=== PATIENT | male | born 1945 | race Caucasian/White ===

== ENCOUNTER → 2016-07-08 | Outpatient (CLI) | payer OTHER, BC ==
[2015-07-10 13:07] VITALS: BP 148/67; PULSE 59
[~2016-07-08] MED LIST: COEN150C PO; IBUP-1459 PO; OXYC1TAB3 PO; PEMB1INJ IV; PILO5TAB10 PO; SIMV20TA2 PO; [UNRECOGNIZED DRUG - CODE] INJ; [UNRECOGNIZED DRUG - CODE] INJ
[2016-07-08 13:09] VITALS: BP 149/74; PULSE 72; TEMP 36.8; O2SAT 99
--- NOTE | 2016-07-08 16:34 | Radiation Oncology Follow-Up ---
Radiation Oncology Follow-Up Date of Visit Jul 08, 2016. Reason For Visit Annual follow-up Radiation Completion Date 11/29/14 Diagnosis (1) Malignant neoplasm of base of tongue Status: Resolved Onset Date: 09/19/2014 Location: left tongue base with extension across midline and into bilateral neck Histology Subtype: squamous cell carcinoma Stage: IV Permanent Comment: One set of your discomfort Evaluation and finding of a right neck mass Status post FNA of a right neck node 08/22/2014 suspicious for malignancy PET/CT 08/29/2014 consistent with neoplasm left base of the tongue with extension across the midline. And bilateral lymph node metastasis Status post direct laryngoscopy and biopsy 09/12/2014 Status post combined radiation and chemotherapy radiation completed 11/29/2014 received 7000 cGy Last Edited By: Ghazal Ivory on Dec 07, 2014 14:26 History of Present Illness This otherwise fit 71-year-old gentleman was referred from ENT surgery in [place] for consideration of definitive therapy for his head and neck carcinoma. The patient had noted ear pain on the contralateral left side a few months ago when he obtained new in-ear hearing aids. The problem is worse on the left and was intermittent. He then noted about 6 weeks ago the onset of some difficulty in swallowing completely. The patient sought medical attention and was seen by ENT. Dr. Ricks noted suspicious adenopathy in the right neck at the digastric region. The patient had not noticed this. The patient was taken to the operating room for direct laryngoscopy and possible biopsy back on 09/12/2014 of this year. Biopsies from his epiglottis, glottic tip and tongue base were all NEGATIVE for carcinoma. Needle aspirate performed on 08/22/2014 of the suspicious pelon area was a suspicious for malignancy. The patient underwent a workup that included PET/CT scan on 08/29/2014. That demonstrated a mass at the tongue base that is approximately 2.5 cm in diameter (T2). There was a confluence of multiple lymph nodes seen in the right neck. The nodes were primarily in the classic digastric pelon area. These nodes were 8-9 mm in size confluence. The patient is not taking anything specifically for pain. He has noticed his appetite has remained reasonably good. He has no systemic manifestations of metastatic disease. The patient has been keeping up with his dental care. He has not seen a medical oncologist to consider combined chemoradiation in this setting. In view of the negative true biopsies and only suspicious needle aspirates we did have pathology here reneedle the lymph nodes. The "Quick" pathology read is positive for squamous cell malignancy. The HPV testing will be done on the specimen if possible. 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 They are understanding his disease. It is interesting when talking with the patient, he stopped smoking back in 1991 and has never had alcohol abuse as part of his history and does not drink alcohol at all now. He was seen by Dr. Coats. Decision was to treat him with combined radiation and chemotherapy. He completed combined radiation and chemotherapy. He developed difficulty with nutrition and had a feeding tube placed. He was able to complete the treatment. He was hospitalized for nausea and vomiting as well as dysphagia. He completed radiation therapy 11/29/2014 received 7000 cGy. Interim History He has been doing well over this past year. He does have xerostomia. This is especially noticeable at night. He has tried multiple products to help with the xerostomia including Biotene, stoppers for dry mouth, and Salagen. His taste is still greatly affected. He has no difficulty with smell. He is seen on a regular basis by ENT and has scoping's every 3 months. He recently had pain at the base of the tongue. This would occur especially with eating. He did see Dr. Hernandez and was evaluated. He took ibuprofen. The pain resolved without difficulty. He continues regular follow-up with medical oncology. He had a PET scan 02/17/2016. This was a negative study. He is scheduled for recheck CT scan in August. Allergies Coded Allergies: Amoxicillin (Unverified Allergy, Severe, RASH, 02/28/15) Home Medications Scheduled Coenzyme Q10 (Ubidecarenone) (Co Q-10), 100 MG PO DAILY Simvastatin (Zocor), 20 MG PO QPM Review of Systems Gastrointestinal: Symptoms: WNL GI Comments: No dysphagia; Oral: Symptoms: Scant Saliva/Dry Mouth Other Oral Symptoms: Dry mouth more noticeable at night; Respiratory: Symptoms: WNL Urinary: Symptoms: WNL Skin: Symptoms: No Problems Physical Exam Vital Signs Date Time Temp Pulse Resp B/P Pulse Ox O2 Delivery O2 Flow Rate FiO2 07/08/16 13:09 36.8 72 16 149/74 99 Pain: Pain Location: None Patient Pain Scale: 0 - 10 Initial Pain Intensity: 0.0 Fatigue: None General Appearance: no apparent distress Eyes: normal inspection, EOMI ENT: normal ENT inspection, TMs normal, + pertinent finding (mouth there are no visible lesions of the tongue, posterior pharynx, or buccal mucosa.) Neck: supple, no adenopathy, thyroid normal Respiratory/Chest: lungs clear, no respiratory distress, no accessory muscle use Cardiovascular: regular rate, rhythm, no gallop, no murmur Abdomen: non tender, soft Extremities: no pedal edema Neurologic/Psychiatric: no motor/sensory deficits, alert, normal mood/affect Skin: warm/dry Assessment & Plan Plan: Continue regular follow-up with medical oncology his primary care physician and ENT. He is going to have a recheck CT scan in August. We've asked him to have carotid Dopplers for follow-up. We'll try to arrange these on the same day to save [facility] [place]. I have given him an order for a TSH that he can have drawn the next time he has routine laboratory studies. He' ll be notified as to the results of these tests. We asked him to return to our office in 1 year. He may call if he has any questions or concerns in the interim. Total Time In Follow-Up I spent 20 minutes feeding to the patient and performing examination. I spent 15 minutes reviewing information in completing this note. Copy To Filiberto Ricks; Vignesh Perez M.D.; Robel Coats M.D.
== END | disposition home or self-care (01) ==
LOC: C.ONC 12:51
PROVIDERS: ATTEND Physician Assistant Medical
DX: Z08 Encounter for follow-up examination after completed treatment for malignant neoplasm (principal); Z92.3 Personal history of irradiation; Z85.810 Personal history of malignant neoplasm of tongue

== ENCOUNTER → 2016-08-24 | Outpatient (CLI) | payer OTHER, BC ==
[~2016-08-24] MED LIST changes: +OPTIRAY 320 IV PRN; -PILO5TAB10 PO
--- NOTE | 2016-08-24 10:20 | DIAGNOSTIC IMAGING REPORT ---
BILATERAL CAROTID DOPPLER STUDY HISTORY: HX NEOPLASM BASE OF TONGUE COMPARISON: None. TECHNIQUE: Real-time, grayscale, and color Doppler sonography of the carotid arteries was performed. Imaging reviewed in the transverse and longitudinal planes. All measurements were calculated based on NASCET criteria. FINDINGS: Antegrade flow is seen in the bilateral vertebral arteries. The brachial pressures are hemodynamically similar. Mild calcified plaque within the bilateral carotid bifurcations The peak systolic velocity within the right ICA is 83 cm/s. The right systolic ratio is 1. The peak systolic velocity within the left ICA is 84 cm/s. The left systolic ratio is 1.2. IMPRESSION: No hemodynamically significant stenosis seen within the carotid arteries. Electronically signed by: Brad Howard M.D. 08/24/2016 10:19 AM Dictated Date/Time: 08/24/2016 10:18 AM
--- NOTE | 2016-08-24 11:37 | DIAGNOSTIC IMAGING REPORT ---
CHEST CT WITH CONTRAST CT DOSE: HISTORY: Carcinoma X TECHNIQUE: Multiaxial CT images of the chest were performed following the intravenous administration of contrast. COMPARISON: PET/CT scan 02/17/2016 FINDINGS: The lungs are clear. The mediastinal vascular structures are within normal limits. No mediastinal or hilar lymphadenopathy. No pleural effusion or pneumothorax. Limited views of the upper abdomen demonstrate a normal liver and spleen. Calcified granuloma right upper lung considered benign. IMPRESSION: No significant abnormality identified within the chest. Electronically signed by: Be Dsouza M.D. 08/24/2016 11:35 AM Dictated Date/Time: 08/24/2016 11:33 AM
--- NOTE | 2016-08-24 11:44 | DIAGNOSTIC IMAGING REPORT ---
CT SOFT TISSUE NECK WITH CT DOSE: 1909.45 mGy.cm CLINICAL HISTORY: Base of tongue carcinoma TECHNIQUE: Helical images were acquired during intravenous administration of 94 cc of Optiray 320. COMPARISON STUDY: Outside 611 radiology study dated 08/16/2014, PET/CT scan dated 02/17/2016 FINDINGS: The visualized portions of the lung apices are unremarkable. No thyroid masses are visualized. No salivary gland masses are visualized. The right internal jugular vein is not clearly visualized. There is loss of the soft tissue planes surrounding the right internal carotid artery. There is increasing soft tissue posterior to the right sternocleidomastoid at the base the right neck abutting the lateral margin of the right carotid. This appears to have enlarged when compared the prior PET/CT scan. Metastatic disease must be considered. Fine-needle aspiration biopsy might be considered in follow-up.. There are no fluid collections suspicious for abscess. There is no evidence of airway compromise. No mucosal space masses are visualized. IMPRESSION: Enlarging 4 cm soft tissue mass at the base of the right neck posterior to the sternocleidomastoid, and abutting the right internal carotid artery. There is loss of normal fat planes surrounding the right internal carotid artery. The right internal jugular vein is not visualized. Metastatic disease must be considered. Fine-needle aspiration biopsy might be considered in follow-up. Electronically signed by: Alfie Nichole M.D. 08/24/2016 11:42 AM Dictated Date/Time: 08/24/2016 11:33 AM
--- NOTE | 2016-08-24 12:24 | DIAGNOSTIC IMAGING REPORT ---
ABDOMEN AND PELVIS CT WITH IV AND ORAL CONTRAST CT DOSE: HISTORY: Tongue cancer. TECHNIQUE: Multiaxial CT images of the abdomen and pelvis were performed following the use of intravenous and oral contrast. COMPARISON STUDY: PET CT 02/17/2016. FINDINGS: The lung bases are clear. Old, healed right-sided rib fractures. No suspicious lytic or blastic osseous lesions. The spleen, adrenal glands, pancreas, kidneys, and gallbladder are unremarkable. There are few subcentimeter hypodense lesions seen scattered throughout the liver. The dominant lesion within the right hepatic dome measures 5 mm. These are too small to characterize but favor cysts. These are stable compared to the prior studies. No retroperitoneal lymphadenopathy. Subcentimeter mesenteric lymph nodes remain stable. The bladder is unremarkable. Normal appendix. No evidence for bowel obstruction. Moderate stool within the colon. Multiple colonic diverticula. Focal thickening seen within a large diverticulum of the mid sigmoid colon. This is best seen on image 346. There is also minimal adjacent fat stranding/soft tissue thickening. This is similar to the prior studies. There is also a few prominent pericolonic lymph nodes at this location measuring up to 8 mm. IMPRESSION: 1. No evidence for metastatic disease within the abdomen or pelvis. 2. Focal thickening involving a large diverticulum within the mid sigmoid colon which is similar to the prior studies. This could represent a chronic diverticulitis. There is also a minimal adjacent soft tissue thickening/fat stranding and a few prominent pericolonic lymph nodes. In addition, an underlying mass could also have a similar appearance. Colonoscopy is recommended for further evaluation. Electronically signed by: Brad Howard M.D. 08/24/2016 12:23 PM Dictated Date/Time: 08/24/2016 12:15 PM
== END | disposition home or self-care (01) ==
LOC: C.CTS 09:10
PROVIDERS: ATTEND Internal Medicine Hematology
DX: C01 Malignant neoplasm of base of tongue (principal); R22.1 Localized swelling, mass and lump, neck

== ENCOUNTER → 2016-09-23 | Outpatient (CLI) | payer OTHER, BC ==
[~2016-09-23] MED LIST changes: -OPTIRAY 320 IV PRN
[2016-09-23 13:25] VITALS: BP 137/69; PULSE 59; TEMP 36.9; O2SAT 97
--- NOTE | 2016-09-23 15:56 | Radiation Oncology Follow-Up ---
Radiation Oncology Follow-Up Date of Visit Sep 23, 2016. (Ghazal Ivory PA-C) Reason For Visit To discuss recurrence of head and neck cancer (Ghazal Ivory PA-C) Radiation Completion Date 11/29/16 (Ghazal Ivory PA-C) Diagnosis (1) Malignant neoplasm of base of tongue Status: Acute Onset Date: 09/19/2014 Location: recurrence right anterior neck Histology Subtype: squamous cell carcinoma Stage: Not Applicable Permanent Comment: One set of your discomfort Evaluation and finding of a right neck mass Status post FNA of a right neck node 08/22/2014 suspicious for malignancy PET/CT 08/29/2014 consistent with neoplasm left base of the tongue with extension across the midline. And bilateral lymph node metastasis Status post direct laryngoscopy and biopsy 09/12/2014 Stage T3 N2c M0 Status post combined radiation and chemotherapy radiation completed 11/29/[address] 08/24/2016 revealing a 4 cm mass of the right neck FNA positive for malignant cells 09/01/2016, squamous cell carcinoma Last Edited By: Ghazal Ivory on Sep 23, 2016 15:55 (Ghazal Ivory PA-C) History of Present Illness This otherwise fit 71-year-old gentleman was referred from ENT surgery in [place] for consideration of definitive therapy for his head and neck carcinoma. The patient had noted ear pain on the contralateral left side a few months ago when he obtained new in-ear hearing aids. The problem is worse on the left and was intermittent. He then noted about 6 weeks ago the onset of some difficulty in swallowing completely. The patient sought medical attention and was seen by ENT. Dr. Ricks noted suspicious adenopathy in the right neck at the digastric region. The patient had not noticed this. The patient was taken to the operating room for direct laryngoscopy and possible biopsy back on 09/12/2014 of this year. Biopsies from his epiglottis, glottic tip and tongue base were all NEGATIVE for carcinoma. Needle aspirate performed on 08/22/2014 of the suspicious pelon area was a suspicious for malignancy. The patient underwent a workup that included PET/CT scan on 08/29/2014. That demonstrated a mass at the tongue base that is approximately 2.5 cm in diameter (T2). There was a confluence of multiple lymph nodes seen in the right neck. The nodes were primarily in the classic digastric pelon area. These nodes were 8-9 mm in size confluence. The patient is not taking anything specifically for pain. He has noticed his appetite has remained reasonably good. He has no systemic manifestations of metastatic disease. The patient has been keeping up with his dental care. He has not seen a medical oncologist to consider combined chemoradiation in this setting. In view of the negative true biopsies and only suspicious needle aspirates we did have pathology here reneedle the lymph nodes. The "Quick" pathology read is positive for squamous cell malignancy. The HPV testing will be done on the specimen if possible. 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 They are understanding his disease. It is interesting when talking with the patient, he stopped smoking back in 1991 and has never had alcohol abuse as part of his history and does not drink alcohol at all now. He was seen by Dr. Coats. Decision was to treat him with combined radiation and chemotherapy. He completed combined radiation and chemotherapy. He developed difficulty with nutrition and had a feeding tube placed. He was able to complete the treatment. He was hospitalized for nausea and vomiting as well as dysphagia. He completed radiation therapy 11/29/2014 received 7000 cGy. (Ghazal Ivory PA-C) Interim History Patient isn't followed closely by Dr. Coats in medical oncology. He had noticed no changes to his neck. He had palpated no masses. He denied pain. He 's had no difficulty with swallowing. His appetite is good and weight is stable. He is also followed by Dr. Ricks. An MRI was ordered and performed 611 on 08/24/2016. This revealed a right neck mass with partial encasement of the right common carotid artery. He also had a CT of the neck on 08/24/2016. This revealed enlarging 4 cm soft tissue mass at the base of the right neck posterior to the sternocleidomastoid, and abutting the right internal carotid artery. There is loss of normal fat plane surrounding the right internal carotid artery. The right internal jugular vein is not visualized. Instead disease must be considered. Fine-needle aspiration biopsy may be considered in follow-up. A fine-needle aspiration was performed 2016. This was positive for malignant cells. Consistent with squamous cell carcinoma. He stated he had a scoping on 09/22/2016 and this was negative for visible disease on the NPL examination. Due to the recurrence patient was referred back to our office to discuss radiation therapy. (Ghazal Ivory PA-C) Allergies Coded Allergies: Amoxicillin (Unverified Allergy, Severe, RASH, 02/28/15) Home Medications Scheduled Coenzyme Q10 (Ubidecarenone) (Co Q-10), 100 MG PO DAILY Pembrolizumab (Keytruda), 1 APPLN IV [id number] Simvastatin (Zocor), 20 MG PO QPM Review of Systems Gastrointestinal: Symptoms: WNL Oral: Symptoms: No Problems Other Oral Symptoms: Side of right neck has tenderness at times Respiratory: Symptoms: WNL Urinary: Symptoms: WNL Skin: Symptoms: No Problems (Ghazal Ivory PA-C) Physical Exam Vital Signs Date Time Temp Pulse Resp B/P (MAP) Pulse Ox O2 Delivery O2 Flow Rate FiO2 09/23/16 13:25 36.9 59 16 137/69 97 Fatigue: None General Appearance: no apparent distress Eyes: normal inspection, PERRL, EOMI ENT: hearing grossly normal, pharynx normal Neck: supple, thyroid normal, + pertinent finding (there is palpable fullness of the right neck anteriorly. This is anterior to the sternocleidomastoid. The area is nontender.) Respiratory/Chest: lungs clear, no respiratory distress, no accessory muscle use Cardiovascular: regular rate, rhythm, no gallop, no murmur Abdomen: non tender, soft Extremities: no pedal edema Neurologic/Psychiatric: no motor/sensory deficits, alert, normal mood/affect Skin: warm/dry (Ghazal Ivory PA-C) Additional Studies Patient: AGNES JIN Address1: [address] Rec: [id number] Address2: Acct ID: [id number] [facility] Zip: [place] [address] Date: 1945 Sex: M Room/Bed: Ref Phy: Stevie Lozano M.D. SC: ELHAM Att Phy: Robel Coats M.D. Report #: [id number] Cindy Phy: Vignesh Perez M.D. Test: NCKW Admit Phy: Pattern Maker: ORESTES Interpreting Phy: Alfie Nichole M.D. Diagnosis: WITH AND WITHOUT/TONGUE CA- NEOPLASM BASE OF TONGUE Ordering Phy: Robel Coats M.D. Service Date: 08/24/16 Admit Date: 08/24/16 MNE: [id number] CONF: DICTATED BY: Alfie Nichole M.D.]] CC: Vignesh Perez M.D., Eric M. M.D. Patel, Nilesh A., M.D. Endcc: [~ rep ct add3]] CT SOFT TISSUE NECK WITH CT DOSE: 1909.45 mGy.cm CLINICAL HISTORY: Base of tongue carcinoma TECHNIQUE: Helical images were acquired during intravenous administration of 94 cc of Optiray 320. COMPARISON STUDY: Outside 611 radiology study dated 08/16/2014, PET/CT scan dated 02/17/2016 FINDINGS: The visualized portions of the lung apices are unremarkable. No thyroid masses are visualized. No salivary gland masses are visualized. The right internal jugular vein is not clearly visualized. There is loss of the soft tissue planes surrounding the right internal carotid artery. There is increasing soft tissue posterior to the right sternocleidomastoid at the base the right neck abutting the lateral margin of the right carotid. This appears to have enlarged when compared the prior PET/CT scan. Metastatic disease must be considered. Fine-needle aspiration biopsy might be considered in follow-up.. There are no fluid collections suspicious for abscess. There is no evidence of airway compromise. No mucosal space masses are visualized. IMPRESSION: Enlarging 4 cm soft tissue mass at the base of the right neck posterior to the sternocleidomastoid, and abutting the right internal carotid artery. There is loss of normal fat planes surrounding the right internal carotid artery. The right internal jugular vein is not visualized. Metastatic disease must be considered. Fine-needle aspiration biopsy might be considered in follow-up. Electronically signed by: Alfie Nichole M.D. 08/24/2016 11:42 AM Dictated Date/Time: 08/24/2016 11:33 AM Patient: AGNES JIN Address1: [address] Rec: [id number] Address2: Acct ID: [id number] [facility] Zip: [place] [address] Date: 1945 Sex: M Room/Bed: Ref Phy: Stevie Lozano M.D. SC: ELHAM Att Phy: Robel Coats M.D. Report #: [id number] Cindy Phy: Vignesh Perez M.D. Test: CX Admit Phy: Pattern Maker: ORESTES Interpreting Phy: Be Dsouza M.D. Diagnosis: WITH AND WITHOUT/TONGUE CA- NEOPLASM BASE OF TONGUE Ordering Phy: Robel Coats M.D. Service Date: 08/24/16 Admit Date: 08/24/16 MNE: [id number] CONF: DICTATED BY: Be Dsouza M.D.]] CC: Vignesh Perez M.D., Eric M. M.D. Patel, Nilesh A., M.D. Endcc: [~ rep ct add3]] CHEST CT WITH CONTRAST CT DOSE: HISTORY: Carcinoma X TECHNIQUE: Multiaxial CT images of the chest were performed following the intravenous administration of contrast. COMPARISON: PET/CT scan 02/17/2016 FINDINGS: The lungs are clear. The mediastinal vascular structures are within normal limits. No mediastinal or hilar lymphadenopathy. No pleural effusion or pneumothorax. Limited views of the upper abdomen demonstrate a normal liver and spleen. Calcified granuloma right upper lung considered benign. IMPRESSION: No significant abnormality identified within the chest. Electronically signed by: Be Dsouza M.D. 08/24/2016 11:35 AM Dictated Date/Time: 08/24/2016 11:33 AM Patient: AGNES JIN Address1: [address] Rec: [id number] Address2: Acct ID: [id number] [facility] Zip: [place] [address] Date: 1945 Sex: M Room/Bed: Ref Phy: Stevie Lozano M.D. SC: ELHAM Att Phy: Robel Coats M.D. Report #: [id number] Cindy Phy: Vignesh Perez M.D. Test: APW Admit Phy: Pattern Maker: ORESTES Interpreting Phy: Brad Howard MD Diagnosis: WITH AND WITHOUT/TONGUE CA -NEOPLASM BASE OF TONGUE Ordering Phy: Robel Coats M.D. Service Date: 08/24/16 Admit Date: 08/24/16 MNE: PWRSCRIBE CONF: DICTATED BY: Brad Howard M.D.]] CC: Vignesh Perez M.D., Eric M. M.D. Patel, Nilesh A., M.D. Endcc: [~ rep ct add3]] ABDOMEN AND PELVIS CT WITH IV AND ORAL CONTRAST CT DOSE: HISTORY: Tongue cancer. TECHNIQUE: Multiaxial CT images of the abdomen and pelvis were performed following the use of intravenous and oral contrast. COMPARISON STUDY: PET CT 02/17/2016. FINDINGS: The lung bases are clear. Old, healed right-sided rib fractures. No suspicious lytic or blastic osseous lesions. The spleen, adrenal glands, pancreas, kidneys, and gallbladder are unremarkable. There are few subcentimeter hypodense lesions seen scattered throughout the liver. The dominant lesion within the right hepatic dome measures 5 mm. These are too small to characterize but favor cysts. These are stable compared to the prior studies. No retroperitoneal lymphadenopathy. Subcentimeter mesenteric lymph nodes remain stable. The bladder is unremarkable. Normal appendix. No evidence for bowel obstruction. Moderate stool within the colon. Multiple colonic diverticula. Focal thickening seen within a large diverticulum of the mid sigmoid colon. This is best seen on image 346. There is also minimal adjacent fat stranding/soft tissue thickening. This is similar to the prior studies. There is also a few prominent pericolonic lymph nodes at this location measuring up to 8 mm. IMPRESSION: 1. No evidence for metastatic disease within the abdomen or pelvis. 2. Focal thickening involving a large diverticulum within the mid sigmoid colon which is similar to the prior studies. This could represent a chronic diverticulitis. There is also a minimal adjacent soft tissue thickening/fat stranding and a few prominent pericolonic lymph nodes. In addition, an underlying mass could also have a similar appearance. Colonoscopy is recommended for further evaluation. Electronically signed by: Brad Howard M.D. 08/24/2016 12:23 PM Dictated Date/Time: 08/24/2016 12:15 PM (Ghazal Ivory PA-C) Assessment & Plan Mr. 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 More recently, the patient was complaining of left ear and left facial pain. The patient did undergo a CT of the neck in August 2016 which revealed a mass involving the right supraclavicular fossa concerning for recurrent disease. The patient then subsequently underwent an FNA biopsy of the level IV lymph node which confirmed recurrent squamous cell carcinoma that is p16 [address] Ricks. The patient underwent an MRI of the neck on 09/16/2016 which confirmed a 3.5 cm mass in the right neck with potential involvement of the right internal carotid artery. Dr. Ricks recommended against upfront salvage resection and initiation of induction chemotherapy with the potential role of salvage resection or salvage radiation therapy. The patient was seen by Dr. Robel Coats for medical oncology who is recommended Keytruda a second line immunotherapy for the patient's recurrent head and neck cancer. We are now seeing the patient back in follow-up evaluation to discuss role of radiation therapy. I have already had an in depth discussion with Dr. Ricks from ENT regarding management for Mr. Jin. Dr. Ricks has expressed concern for excision of the mass due to involvement of the carotid artery. Additionally, the patient has had received previous radiation therapy involving the right neck which places him in an increased risk for re-radiation. We both agreed the patient should initially undergo systemic therapy with the goal of potentially reducing the size of the mass. Additionally, we both agree that the patient should undergo restaging scans within the next one to 2 months following systemic therapy in order to assess for response to treatment and potential resectability. If the patient continues to remain unresectable or suffers from progression of disease while on systemic therapy, we would then recommend proceeding with potential stereotactic body radiation therapy to the recurrent cancer. I did explain to the patient that there is an increasing body of literature that has shown good clinical outcomes and safety profile utilizing SBRT for treatment of recurrent head and neck cancer in a previously irradiated field. The patient understands that a second course of radiation therapy in a previously irradiated field we will increase that potential risk of side effects specifically including carotid blowout, soft tissue necrosis, skin fibrosis, fistula formation, dysphagia. The patient is in agreement with this plan. I will speak with Dr. Robel Coats regarding management to confirm the treatment plan. The patient and family had multiple questions which were answered to their full satisfaction. Thank you for allowing us to participate in the care of this patient. This chart was completed in part utilizing [employer] Speech Voice Recognition software. Attempts were made to minimize the grammatical errors, random word insertions, pronoun errors and incomplete sentences. Any formal questions or concerns about the content, text or information contained within the body of this dictation should be directly addressed to the provider for clarification. Radha Coats MD Department of Radiation Oncology [facility] (Veeral. Coats MD) Total Time In Follow-Up I spent 20 minutes speaking to the patient performing examination. I spent 15 minutes reviewing information completing this note. (Ghazal Ivory PA-C) I spent 20 minutes examining and counseling the patient. I spent 10 minutes completing this note. (Veeral. Coats MD) Copy To Filiberto Ricks; Robel Coats M.D.
== END | disposition home or self-care (01) ==
LOC: C.ONC 13:04 → EDSTATUS 13:30
PROVIDERS: ATTEND Physician Assistant Medical
DX: Z08 Encounter for follow-up examination after completed treatment for malignant neoplasm (principal); Z92.3 Personal history of irradiation; Z85.810 Personal history of malignant neoplasm of tongue

== ENCOUNTER → 2016-10-20 | Outpatient (CLI) | payer OTHER, BC ==
[~2016-10-20] MED LIST changes: +GADAVIST IV PRN
--- NOTE | 2016-10-20 15:49 | DIAGNOSTIC IMAGING REPORT ---
MRI OF THE NECK WITHOUT A WITH GADOLINIUM CLINICAL HISTORY: Base of tongue carcinoma. Neck mass. COMPARISON STUDY: Outside MRI dated 09/16/2016, CT scan dated 08/24/2016 FINDINGS: Imaging was performed in the axial and coronal planes, before and after the administration of 8 cc of intravenous Gadavist. Again evident is an infiltrative mass at the base of the neck on the right. This measures 38 x 33 x 40 mm. the mass remains unchanged in size from the outside 611 study. The mass abuts the lateral margin of the right lobe of the thyroid. The mass partially encases the right internal carotid artery. Internal carotid artery maintains a normal flow void. There is probable occlusion of the right internal jugular vein. There is no contralateral lymphadenopathy. No salivary gland masses are visualized. Visualized portions intracranial contents are unremarkable. There is mild tongue base asymmetry without evidence of a discrete mass. IMPRESSION: 1. Tongue base asymmetry without evidence of a discrete mass 2. Stable infiltrative mass at the base of the right neck measuring 38 x 33 x 40 mm. The mass partially encases the right internal carotid artery which appears patent. The internal jugular vein is likely occluded. 3. No evidence of contralateral adenopathy. Electronically signed by: Alfie Nichole M.D. 10/20/2016 3:48 PM Dictated Date/Time: 10/20/2016 3:29 PM
== END | disposition home or self-care (01) ==
LOC: C.MRIBC 13:28
PROVIDERS: ATTEND Internal Medicine Hematology
DX: C01 Malignant neoplasm of base of tongue (principal); C77.0 Secondary and unspecified malignant neoplasm of lymph nodes of head, face and neck

== ENCOUNTER 2016-11-02 22:12 | Emergency (ER) | payer OTHER, BC ==
[~2016-11-02] VITALS: Ht 185.4 cm; Wt 84.9 kg
[~2016-11-02 22:12] MED LIST changes: -GADAVIST IV PRN; -IBUP-1459 PO; -OXYC1TAB3 PO; -[UNRECOGNIZED DRUG - CODE] INJ; -[UNRECOGNIZED DRUG - CODE] INJ
[2016-11-02 22:15] VITALS: TEMP 36.8; Ht 185.4 cm; Wt 84.9 kg
[2016-11-02] MEDS ORDERED: SODIUM CHLORIDE 0.9% 1000ML 1,000 ML IV STA ×2 (23:22)
[2016-11-02] MEDS ORDERED: ONDANSETRON INJ 2 MG/ML 2 ML VIAL IV STA (23:22)
--- NOTE | 2016-11-02 23:27 | EMERGENCY ROOM VISIT NOTE ---
History Report prepared by Nancy: Lala Bowers Under the Supervision of: Dr. Juan Pablo Glover D.O. 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 He rates his discomfort as an 8/10. The pain does not radiate anywhere. He states the pain started after he began chemotherapy treatment for a history of throat cancer. He was put on a new medication 2 weeks ago, and states the pain started immediately after the treatment, but then subsided and for 2 to 3 days. The pain came back again after his most recent treatment 4 days ago. He also complains of nausea, diarrhea and the chills. He denies any recent fevers, melena or hematochezia. He does not believe his abdomen is distended. 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 A total of 10 systems reviewed and were otherwise negative. Family History Cancer Social History Smoking Status: Never Smoker Alcohol Use: occasionally Drug Use: none Marital Status: Housing Status: lives with family Occupation Status: retired Current/Historical Medications Scheduled Cisplatin (Cisplatin), 1 DOSE INJ WK Coenzyme Q10 (Ubidecarenone) (Co Q-10), 100 MG PO DAILY Docetaxel (Docetaxel), 1 DOSE INJ WK Simvastatin (Zocor), 20 MG PO QPM Scheduled PRN Oxycodone Immediate Rel Tab (Roxicodone Ir), 1-2 TAB PO Q4H PRN for Severe Pain Allergies Coded Allergies: Amoxicillin (Unverified Allergy, Severe, RASH, 11/02/16) Physical Exam Vital Signs Date Time Temp Pulse Resp B/P (MAP) Pulse Ox O2 Delivery O2 Flow Rate FiO2 11/03/16 01:51 76 20 130/72 98 Room Air 11/03/16 00:26 88 18 105/85 95 Room Air 11/02/16 23:46 89 11/02/16 23:42 84 20 141/70 96 Room Air 11/02/16 22:15 36.8 91 20 115/68 100 Room Air Physical Exam GENERAL: Patient is awake, alert and somewhat anxious appearing and uncomfortable. He appears to be in significant pain. EYES: The conjunctivae are clear. The pupils are round and reactive. EARS, NOSE, MOUTH AND THROAT: The nose is without any evidence of any deformity. Mucous membranes are dry, tongue is midline NECK: The neck is nontender and supple. RESPIRATORY: Normal respiratory effort is noted there is no evidence of wheezing rhonchi or rales CARDIOVASCULAR: Regular rate and rhythm noted there no murmurs rubs or gallops normal S1 normal S2 GASTROINTESTINAL: The abdomen is moderately distended and diffusely tender. LLQ tenderness to palpation. MUSCULOSKELETAL/EXTREMITIES: There is no evidence of gross deformity full range of motion is noted in the hips and shoulders SKIN: There is no obvious evidence of any rash. There are no petechiae, pallor or cyanosis noted. NEUROLOGIC: Patient is awake alert and oriented x3 Medical Decision & Procedures ER Provider Diagnostic Interpretation: CT of the abdomen and pelvis was obtained. The report was reviewed. Preliminary Findings Only See Final Report For Complete Findings CT ABDOMEN & PELVIS: Thickening of the descending and sigmoid colon with surrounding inflammatory change. Findings are consistent with nonspecific colitis. No free intraperitoneal fluid or air. No bowel obstruction. Livers, spleen, pancreas, gallbladder and kidneys are unremarkable. Radiologist: Madi Solomon M.D. Study ready at 00:55 and initial results transmitted at 01:01 CHEST X-RAY Heart size is normal, no free air, no infiltrate. No significant change when compared to recruiting and selection consultant film from CT Chest dated 08/24/2016. Laboratory Results 11/02/16 22:40 Red Blood Count 4.47, Mean Corpuscular Volume 90.6, Mean Corpuscular Hemoglobin 31.8, Mean Corpuscular Hemoglobin Concent 35.1, Mean Platelet Volume 10.1, Neutrophils (%) (Auto) 72.3, Lymphocytes (%) (Auto) 16.5, Monocytes (%) (Auto) 10.0, Eosinophils (%) (Auto) 0.3, Basophils (%) (Auto) 0.3, Neutrophils # (Auto ) 2.32, Lymphocytes # (Auto) 0.53, Monocytes # (Auto) 0.32, Eosinophils # (Auto ) 0.01, Basophils # (Auto) 0.01 11/02/16 22:40 Test 11/02/16 22:40 11/02/16 23:00 White Blood Count 3.21 K/uL (4.8-10.8) Red Blood Count 4.47 M/uL (4.7-6.1) Hemoglobin 14.2 g/dL (14.0-18.0) Hematocrit 40.5 % (42-52) Mean Corpuscular Volume 90.6 fL (80-100) Mean Corpuscular Hemoglobin 31.8 pg (25-34) Mean Corpuscular Hemoglobin Concent 35.1 g/dl (32-36) Platelet Count 233 K/uL (130-400) Mean Platelet Volume 10.1 fL (7.4-10.4) Neutrophils (%) (Auto) 72.3 % Lymphocytes (%) (Auto) 16.5 % Monocytes (%) (Auto) 10.0 % Eosinophils (%) (Auto) 0.3 % Basophils (%) (Auto) 0.3 % Neutrophils # (Auto) 2.32 K/uL (1.4-6.5) Lymphocytes # (Auto) 0.53 K/uL (1.2-3.4) Monocytes # (Auto) 0.32 K/uL (0.11-0.59) Eosinophils # (Auto) 0.01 K/uL (0-0.5) Basophils # (Auto) 0.01 K/uL (0-0.2) RDW Standard Deviation 43.7 fL (36.4-46.3) RDW Coefficient of Variation 13.2 % (11.5-14.5) Immature Granulocyte % (Auto) 0.6 % Immature Granulocyte # (Auto) 0.02 K/uL (0.00-0.02) Red Blood Cell Morphology Unremarkable Anion Gap 12.0 mmol/L (3-11) Est Creatinine Clear Calc Drug Dose 54.7 ml/min Estimated GFR () 58.2 Estimated GFR (Non- 50.2 BUN/Creatinine Ratio 15.9 (10-20) Calcium Level 9.6 mg/dl (8.5-10.1) Total Bilirubin 1.9 mg/dl (0.2-1) Direct Bilirubin 0.7 mg/dl (0-0.2) Aspartate Amino Transf (AST/SGOT) 21 U/L (15-37) Alanine Aminotransferase (ALT/SGPT) 47 U/L (12-78) Alkaline Phosphatase 98 U/L (45-117) Total Protein 7.7 gm/dl (6.4-8.2) Albumin 3.1 gm/dl (3.4-5.0) Lipase 107 U/L (73-393) Urine Color ORANGE Urine Appearance CLEAR (CLEAR) Urine pH 5.5 (4.5-7.5) Urine Specific [place] 1.023 (1.000-1.030) Urine Protein 1+ (NEG) Urine Glucose (UA) NEG (NEG) Urine Ketones NEG (NEG) Urine Occult Blood NEG (NEG) Urine Nitrite NEG (NEG) Urine Bilirubin NEG (NEG) Urine Urobilinogen NEG (NEG) Urine Leukocyte Esterase NEG (NEG) Urine WBC (Auto) 1-5 /hpf (0-5) Urine RBC (Auto) 0-4 /hpf (0-4) Urine Hyaline Casts (Auto) 1-5 /lpf (0-5) Urine Epithelial Cells (Auto) 10-20 /lpf (0-5) Urine Bacteria (Auto) NEG (NEG) Laboratory results per my review. Medications Administered Medications (Trade) Dose Ordered Sig/Joanna Route Start Time Stop Time Status Last Admin Dose Admin Sodium Chloride 1,000 ml @ 999 mls/hr Q1H1M STAT IV 11/02/16 23:22 11/03/16 00:22 DC 11/02/16 23:38 999 MLS/HR Sodium Chloride 1,000 ml @ 250 mls/hr Q4H STAT IV 11/02/16 23:22 11/03/16 03:21 DC 11/02/16 23:22 250 MLS/HR Morphine Sulfate (MoRPHine SULFATE INJ) 4 mg Q15M PRN IV 11/02/16 23:30 11/03/16 03:43 DC 11/03/16 01:09 4 MG Ondansetron HCl (Zofran Inj) 4 mg NOW STAT IV 11/02/16 23:22 11/02/16 23:23 DC 11/02/16 23:38 4 MG ED Course 2320: The patient was evaluated in room C9. A complete history and physical examination were performed. 2322: Zofran 4 mg IV, NSS 1000 ml @ 250 mls/hr IV, NSS 1000 ml @ 999 mls/hr IV. 2330: Morphine Sulfate 4 mg IV. 0130: I reevaluated the patient. He is feeling much better. I discussed his results and discharge instructions and he verbalized complete understanding and agreement. Medical Decision Prior records/ancillary studies reviewed. Triage Nursing notes reviewed. The patient's history was concerning for abdominal pain. Differential diagnosis: Etiologies such as appendicitis, diverticulitis, PUD, biliary pathology, UTI, pancreatitis, obstruction, mesenteric ischemia, aortic pathology, infections, inflammatory bowel disease, renal colic, as well as others were entertained. The patient is a 71-year-old male who is been receiving chemotherapy. He's been noticing that he develops abdominal pain and diarrhea afterwards. The patient had significant abdominal tenderness. He was treated with IV fluids IV pain medicine and IV antiemetics. On subsequent reevaluation he was feeling much better. He was unable to give us a stool specimen to send for culture and C. difficile testing. The patient's CT appear to be consistent with nonspecific colitis which still could be consistent with chemotherapy related problems. He was encouraged to continue all medications as prescribed and follow-up with his primary care physician as soon as possible. He was also encouraged to drink plenty clear liquids and return to the emergency department immediately if symptoms change worsen or the need arises. Medication Reconcilliation Current Medication List: was personally reviewed by me Blood Pressure Screening Patient's blood pressure: Normal blood pressure Blood pressure disposition: Did not require urgent referral Impression Primary Impression: Abdominal pain Additional Impressions: Diarrhea Colitis Scribe Attestation The scribe's documentation has been prepared under my direction and personally reviewed by me in its entirety. I confirm that the note above accurately reflects all work, treatment, procedures, and medical decision making performed by me. Departure Information Dispostion Home / Self-Care Prescriptions Oxycodone Immediate Rel Tab (ROXICODONE IR) 5 Mg Tab 1-2 TAB PO Q4H Y for Severe Pain, #24 TAB Prov: Juan Pablo Glover, DO 11/03/16 Referrals Vignesh Perez M.D. (PCP) Patient Instructions Abdominal Pain, Diarrhea, My [facility] Additional Instructions Call your primary oncologist in the morning to schedule a follow-up appointment. Drink plenty clear liquids. Continue all medications as prescribed. If symptoms do not improve I would recommend stool studies be performed such as culture and testing for C. difficile. Problem Qualifiers Primary Impression: Abdominal pain Abdominal location: unspecified location Qualified Codes: R10.9 - Unspecified abdominal pain
[2016-11-02 23:31] LABS: HEMATOCRIT 40.5 % (42-52); MEAN CELL VOLUME 90.6 fL (80-100); MEAN CORPUSCULAR HEMOGLOBIN 31.8 pg (25-34); MEAN CORPUSCULAR HGB CONC 35.1 g/dl (32-36); MEAN PLATELET VOLUME 10.1 fL (7.4-10.4); PLATELET COUNT 233 K/uL (130-400); RED BLOOD COUNT 4.47 M/uL (4.7-6.1); WHITE BLOOD COUNT 3.21 K/uL (4.8-10.8)
[2016-11-02] MEDS ORDERED: [UNRECOGNIZED DRUG - CODE] INJ (23:33)
[2016-11-02] MEDS ORDERED: [UNRECOGNIZED DRUG - CODE] INJ (23:33)
[2016-11-02] MEDS: MoRPHine SULFATE 4 MG/ML 1 ML CARP\\VIAL IV PRN (23:38)
[2016-11-02 23:40] LABS: BUN/CREATININE RATIO 15.9 (10-20); CALCIUM 9.6 mg/dl (8.5-10.1); CREATININE 1.4 mg/dl (0.60-1.40); POTASSIUM 4.3 mmol/L (3.5-5.1)
[2016-11-02 23:58] LABS: URINE APPEARANCE CLEAR (CLEAR); URINE BILIRUBIN NEG (NEG); URINE COLOR ORANGE; URINE NITRITE NEG (NEG); URINE PH 5.5 (4.5-7.5); URINE SPECIFIC GRAVITY 1.023 (1.000-1.030); UROBILINOGEN NEG (NEG)
[2016-11-03] MEDS ORDERED: OPTIRAY 320 IV PRN
[2016-11-03 00:05] LABS: MANUAL MICROSCOPIC REQUIRED? NO; REVIEW REQ? NO
[2016-11-03 00:12] LABS: BASO % 0.3 %; BASO ABS # 0.01 K/uL (0-0.2); COMPLETE YES; EOS % 0.3 %; IG% 0.6 %; LYMPH % 16.5 %; LYMPH ABS # 0.53 K/uL (1.2-3.4); NEUT % 72.3 %
[2016-11-03] MEDS: MoRPHine SULFATE 4 MG/ML 1 ML CARP\\VIAL IV PRN (01:09)
[2016-11-03] MEDS ORDERED: OXYC1TAB3 PO (01:44)
[2016-11-03] MEDS ORDERED: OXYCODONE IR HOME PACK PO ONE (01:45)
[2016-11-03 01:51] VITALS: BP 130/72; PULSE 76; O2SAT 98
--- NOTE | 2016-11-03 06:41 | DIAGNOSTIC IMAGING REPORT ---
CHEST ONE VIEW PORTABLE CLINICAL HISTORY: ABDOMINAL PAIN/GI pain. Nausea. COMPARISON STUDY: No previous studies for comparison. FINDINGS: The bones soft tissues and hemidiaphragms are normal. The cardiomediastinal silhouette is normal. The lungs are clear. The pulmonary vasculature is normal. IMPRESSION: Negative chest. The above report was generated using voice recognition software. It may contain grammatical, syntax or spelling errors. Electronically signed by: Be Dsouza M.D. 11/03/2016 6:40 AM Dictated Date/Time: 11/03/2016 6:40 AM
--- NOTE | 2016-11-03 06:50 | DIAGNOSTIC IMAGING REPORT ---
ABD/PELVIS IV CONTRAST ONLY CT DOSE: 385.10 mGy.cm HISTORY: Pain diffuse [pain TECHNIQUE: Multiaxial CT images of the abdomen and pelvis were performed following the use of intravenous contrast. A dose lowering technique was utilized adhering to the principles of ALARA. COMPARISON STUDY: 08/24/2016 FINDINGS: Lung bases are clear. Liver spleen and pancreas are unremarkable. There is moderate wall thickening of the bulk of the sigmoid and descending colonic regions. Moderate pericolonic infiltrative changes present. This is consistent with a nonspecific colitis. There is no evidence for abscess collection or obstructive change. There is no evidence for pneumatosis. IMPRESSION: Nonspecific colitis involving the bulk of the descending and sigmoid colonic regions. No evidence for abscess collection or obstruction. The above report was generated using voice recognition software. It may contain grammatical, syntax or spelling errors. Electronically signed by: Be Dsouza M.D. 11/03/2016 6:49 AM Dictated Date/Time: 11/03/2016 6:45 AM
[2016-12-07] MEDS ORDERED: IBUP-1459 PO (16:16)
== END 2016-11-03 02:09 | disposition home or self-care (01) ==
LOC: C.EDB 22:13 → C.EDC 11-03 02:09
DX: R10.9 Unspecified abdominal pain (principal); R19.7 Diarrhea, unspecified; K52.9 Noninfective gastroenteritis and colitis, unspecified; C14.0 Malignant neoplasm of pharynx, unspecified

== ENCOUNTER → 2017-01-20 | Outpatient (CLI) | payer OTHER, BC ==
[~2017-01-20] MED LIST changes: +IBUP-1459 PO; +OXYC1TAB3 PO; -PEMB1INJ IV
[2017-01-20 15:04] VITALS: BP 134/55; PULSE 64; TEMP 37; O2SAT 98
--- NOTE | 2017-01-20 16:25 | Radiation Oncology Follow-Up ---
Radiation Oncology Follow-Up Date of Visit Jan 20, 2017. Reason For Visit One-month follow-up Radiation Completion Date 12/27/16 Diagnosis (1) Malignant neoplasm of base of tongue Status: Acute Onset Date: 09/19/2014 Location: right neck recurrence Permanent Comment: One set of your discomfort Evaluation and finding of a right neck mass Status post FNA of a right neck node 08/22/2014 suspicious for malignancy PET/CT 08/29/2014 consistent with neoplasm left base of the tongue with extension across the midline. 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 He received 5400 cGy Last Edited By: Ghazal Ivory on Dec 31, 2016 13:34 History of Present Illness Mr. Jin was referred from ENT surgery in [place] for consideration of definitive therapy for his head and neck carcinoma. The patient had noted ear pain on the contralateral left side a few months ago when he obtained new in-ear hearing aids. The problem is worse on the left and was intermittent. He then noted about 6 weeks ago the onset of some difficulty in swallowing completely. The patient sought medical attention and was seen by ENT. Dr. Ricks noted suspicious adenopathy in the right neck at the digastric region. The patient had not noticed this. The patient was taken to the operating room for direct laryngoscopy and possible biopsy back on 09/12/2014 of this year. Biopsies from his epiglottis, glottic tip and tongue base were all NEGATIVE for carcinoma. Needle aspirate performed on 08/22/2014 of the suspicious pelon area was a suspicious for malignancy. The patient underwent a workup that included PET/CT scan on 08/29/2014. That demonstrated a mass at the tongue base that is approximately 2.5 cm in diameter (T2). There was a confluence of multiple lymph nodes seen in the right neck. The nodes were primarily in the classic digastric pelon area. These nodes were 8-9 mm in size confluence. The patient is not taking anything specifically for pain. He has noticed his appetite has remained reasonably good. He has no systemic manifestations of metastatic disease. The patient has been keeping up with his dental care. He has not seen a medical oncologist to consider combined chemoradiation in this setting. In view of the negative true biopsies and only suspicious needle aspirates we did have pathology here reneedle the lymph nodes. The "Quick" pathology read is positive for squamous cell malignancy. The HPV testing will be done on the specimen if possible. 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 They are understanding his disease. It is interesting when talking with the patient, he stopped smoking back in 1991 and has never had alcohol abuse as part of his history and does not drink alcohol at all now. He was seen by Dr. Coats. Decision was to treat him with combined radiation and chemotherapy. He completed combined radiation and chemotherapy. He developed difficulty with nutrition and had a feeding tube placed. He was able to complete the treatment. He was hospitalized for nausea and vomiting as well as dysphagia. He completed radiation therapy 11/29/2014 received 7000 cGy. Interim History He has been doing well over the past month. He is tolerating the chemotherapy well. The rash that he had developed it has steadily improved. He has had no recurrence of the previous issue with colitis. He denies dysphagia. He did not develop wet desquamation of the skin following treatment. He did have some dryness and darker discoloration. He is noted no masses of the neck. He continues on his current dose of chemotherapy. It is planned that he will have a PET/CT 02/08/2017. His taste is steadily improving. Allergies Coded Allergies: Amoxicillin (Unverified Allergy, Severe, RASH, 11/02/16) Home Medications Scheduled Coenzyme Q10 (Ubidecarenone) (Co Q-10), 100 MG PO DAILY Ibuprofen (Motrin), 400 MG PO BID Simvastatin (Zocor), 20 MG PO QPM Scheduled PRN Oxycodone Immediate Rel Tab (Roxicodone Ir), 1-2 TAB PO Q4H PRN for Severe Pain Review of Systems Gastrointestinal: Symptoms: WNL Oral: Symptoms: No Problems Respiratory: Symptoms: WNL Urinary: Symptoms: WNL Skin: Symptoms: No Problems Other Skin Symptoms: Dry scaly / alligator skin at tx site Additional Notes: He completed a distress management report and answered "no" to all questions. Physical Exam Vital Signs Date Time Temp Pulse Resp B/P (MAP) Pulse Ox O2 Delivery O2 Flow Rate FiO2 01/20/17 15:04 37.0 64 16 134/55 98 Fatigue: None General Appearance: no apparent distress Eyes: normal inspection, EOMI ENT: normal ENT inspection, hearing grossly normal, pharynx normal Neck: supple, no adenopathy, + pertinent finding (resolving hyperpigmentation. There is no wet or dry desquamation. No palpable masses of the right neck.) Respiratory/Chest: lungs clear, no respiratory distress, no accessory muscle use Cardiovascular: regular rate, rhythm, no gallop, no murmur Extremities: no pedal edema Neurologic/Psychiatric: no motor/sensory deficits, alert, normal mood/affect Skin: warm/dry Laboratory Studies Test 11/02/16 22:40 11/02/16 23:00 11/25/16 18:04 12/02/16 15:05 Red Blood Cell Morphology Unremarkable Est Creatinine Clear Calc Drug Dose 54.7 ml/min Direct Bilirubin 0.7 mg/dl (0-0.2) Lipase 107 U/L (73-393) Urine Color ORANGE Urine Appearance CLEAR (CLEAR) Urine pH 5.5 (4.5-7.5) Urine Specific [place] 1.023 (1.000-1.030) Urine Protein 1+ (NEG) Urine Glucose (UA) NEG (NEG) Urine Ketones NEG (NEG) Urine Occult Blood NEG (NEG) Urine Nitrite NEG (NEG) Urine Bilirubin NEG (NEG) Urine Urobilinogen NEG (NEG) Urine Leukocyte Esterase NEG (NEG) Urine WBC (Auto) 1-5 /hpf (0-5) Urine RBC (Auto) 0-4 /hpf (0-4) Urine Hyaline Casts (Auto) 1-5 /lpf (0-5) Urine Epithelial Cells (Auto) 10-20 /lpf (0-5) Urine Bacteria (Auto) NEG (NEG) White Blood Count 5.77 K/uL (4.8-10.8) 7.00 K/uL (4.8-10.8) Red Blood Count 3.77 M/uL (4.7-6.1) 3.66 M/uL (4.7-6.1) Hemoglobin 11.6 g/dL (14.0-18.0) 11.6 g/dL (14.0-18.0) Hematocrit 35.6 % (42-52) 34.0 % (42-52) Mean Corpuscular Volume 94.4 fL (80-100) 92.9 fL (80-100) Mean Corpuscular Hemoglobin 30.8 pg (25-34) 31.7 pg (25-34) Mean Corpuscular Hemoglobin Concent 32.6 g/dl (32-36) 34.1 g/dl (32-36) Platelet Count 199 K/uL (130-400) 182 K/uL (130-400) Mean Platelet Volume 9.4 fL (7.4-10.4) 9.0 fL (7.4-10.4) Neutrophils (%) (Auto) 55.5 % 67.1 % Lymphocytes (%) (Auto) 26.3 % 18.3 % Monocytes (%) (Auto) 15.1 % 10.7 % Eosinophils (%) (Auto) 2.4 % 3.1 % Basophils (%) (Auto) 0.5 % 0.4 % Neutrophils # (Auto) 3.20 K/uL (1.4-6.5) 4.69 K/uL (1.4-6.5) Lymphocytes # (Auto) 1.52 K/uL (1.2-3.4) 1.28 K/uL (1.2-3.4) Monocytes # (Auto) 0.87 K/uL (0.11-0.59) 0.75 K/uL (0.11-0.59) Eosinophils # (Auto) 0.14 K/uL (0-0.5) 0.22 K/uL (0-0.5) Basophils # (Auto) 0.03 K/uL (0-0.2) 0.03 K/uL (0-0.2) RDW Standard Deviation 49.7 fL (36.4-46.3) 48.4 fL (36.4-46.3) RDW Coefficient of Variation 14.5 % (11.5-14.5) 14.3 % (11.5-14.5) Immature Granulocyte % (Auto) 0.2 % 0.4 % Immature Granulocyte # (Auto) 0.01 K/uL (0.00-0.02) 0.03 K/uL (0.00-0.02) Sodium Level 140 mmol/L (136-145) 139 mmol/L (136-145) Potassium Level 4.3 mmol/L (3.5-5.1) 4.4 mmol/L (3.5-5.1) Chloride Level 105 mmol/L (98-107) 106 mmol/L (98-107) Carbon Dioxide Level 30 mmol/L (21-32) 31 mmol/L (21-32) Anion Gap 5.0 mmol/L (3-11) 2.0 mmol/L (3-11) Blood Urea Nitrogen 11 mg/dl (7-18) 13 mg/dl (7-18) Creatinine 0.96 mg/dl (0.60-1.40) 0.91 mg/dl (0.60-1.40) Estimated GFR () 91.8 97.9 Estimated GFR (Non- 79.2 84.5 BUN/Creatinine Ratio 11.1 (10-20) 13.9 (10-20) Random Glucose 100 mg/dl (70-99) 97 mg/dl (70-99) Calcium Level 8.9 mg/dl (8.5-10.1) 8.8 mg/dl (8.5-10.1) Total Bilirubin 0.3 mg/dl (0.2-1) 0.3 mg/dl (0.2-1) Aspartate Amino Transferase (AST) 15 U/L (15-37) 13 U/L (15-37) Alanine Aminotransferase (ALT) 22 U/L (12-78) 20 U/L (12-78) Alkaline Phosphatase 85 U/L (45-117) 92 U/L (45-117) Total Protein 6.7 gm/dl (6.4-8.2) 6.7 gm/dl (6.4-8.2) Albumin 3.1 gm/dl (3.4-5.0) 3.0 gm/dl (3.4-5.0) Globulin 3.6 gm/dl (2.5-4.0) 3.7 gm/dl (2.5-4.0) Albumin/Globulin Ratio 0.9 (0.9-2) 0.8 (0.9-2) Assessment & Plan Plan: Continue follow-up with medical oncology. He continues chemotherapy. He' ll have a PET scan on 02/08/2017. We did discuss that he should follow up with ENT with NPL examinations. Plans to schedule appointment after the next PET scan. He was seen and examined by Dr. Coats. We asked him to return to our office in 4 months. He may call if he has any questions or concerns in the interim. Assessment & Plan (Attending) ADDENDUM: I agree with note created by Ghazal Ivory PA-C. I reviewed the patient's chart and information with her. I have examined and evaluated the patient. I reviewed relevant clinical information and answered the patient's and /or family's questions. EXTERMINATION SUPERVISOR Total Time In Follow-Up I spent 20 minutes speaking to the patient and performing examination. I spent 15 minutes reviewing information in completing this note. Total Time (Attending) In Follow-Up I spent 15 minutes examining and counseling the patient. EXTERMINATION SUPERVISOR Copy To Filiberto Ricks; Vignesh Perez M.D.; Robel Coats M.D.
== END | disposition home or self-care (01) ==
LOC: C.ONC 14:59
PROVIDERS: ATTEND Internal Medicine Hematology
DX: Z08 Encounter for follow-up examination after completed treatment for malignant neoplasm (principal); Z92.3 Personal history of irradiation; Z85.810 Personal history of malignant neoplasm of tongue

== ENCOUNTER → 2017-02-08 | Outpatient (CLI) | payer OTHER, BC ==
--- NOTE | 2017-02-08 12:45 | DIAGNOSTIC IMAGING REPORT ---
PET/CT CLINICAL HISTORY: Head and neck cancer. COMPARISON STUDY: PET/CT dated 02/17/2016. Abdominal CT dated 11/03/2016. CT scan of the neck, chest, abdomen, and pelvis dated 08/24/2016. TECHNIQUE: One hour following the IV administration of 13.0 mCi of F-18 FDG, PET/CT examination was performed from the vertex through the bony pelvis. Noncontrast CT is performed for the purposes of anatomic correlation and attenuation correction. Note that this does not reflect a diagnostic CT examination. Images were reviewed on a separate [employer] independent workstation. Fused images were obtained. Standard uptake values reported are maximum values within the region of interest expressed in gm/mL. FINDINGS: PET FINDINGS: Head and neck: There is expected physiologic activity within the brain parenchyma and the salivary glands. There is an ill-defined mass lesion in the right lower neck at the level of thyroid cartilage and T2 the sternocleidomastoid muscle in image #106. This measures approximately 3 x 3 cm, and this lesion may invade the sternocleidomastoid muscle. This is markedly FDG avid with a maximum SUV of 5.4. No additional cervical lesions are identified. Thorax: Evaluation of the thorax demonstrates expected physiologic myocardial activity. There is a 2.0 x 1.3 cm FDG avid lesion in the medial left lower lobe seen on image #140. This demonstrates a maximum SUV of 4.7. No additional pulmonary lesion is identified. There is a calcification containing precarinal node on image #114. This measures 8 mm in short axis and demonstrates faint FDG activity with a maximum SUV of 2.4. No additional FDG avid mediastinal nodes are identified. Pharyngeal activity is nonspecific and may be physiologic. Abdomen and pelvis: There is expected activity within the liver, spleen, kidneys, renal collecting system, and bladder. Low-level bowel activity is likely within physical limits. Unenhanced CT images: The visualized brain parenchyma is normal in appearance. The bony orbits are intact and the orbital contents are within normal limits. The paranasal sinuses and mastoid air cells appear clear. Treatment related change is suggested in the right neck. The salivary and thyroid glands are normal as imaged. There is mild atherosclerotic calcification of the thoracic aorta which is normal in caliber. The heart is normal in size and without pericardial effusion. A tiny hiatal hernia is noted. There is no airspace consolidation or pleural effusion. A large calcified granuloma is seen in the right upper lobe. There is dependent atelectasis. There is no hilar or axillary lymphadenopathy. Calcified right hilar nodes are similar to previous. The unenhanced liver, gallbladder, spleen, pancreas, adrenal glands, and kidneys are grossly unremarkable. The abdominal aorta is normal in course and caliber noting mild to moderate atherosclerotic calcification. There is no bowel obstruction. A normal appendix is identified. There is advanced colonic diverticulosis without CT evidence of acute diverticulitis. No intraperitoneal free air or abdominal ascites is seen. There is no abdominal, retroperitoneal, pelvic sidewall, or inguinal lymphadenopathy. The bladder, prostate, and seminal vesicles are normal as visualized. Cervical as well as lumbosacral spondylosis is observed. There are healed right-sided rib fractures. IMPRESSION: 1. There has been progression of disease, with an enlarging and markedly FDG avid mass lesion in the right lower neck. 2. There is a new an FDG avid pulmonary lesion in the infrahilar left lower lobe. 3. There is a mildly FDG avid precarinal node. This is nonspecific but concerning. 4. There is no evidence of FDG avid disease left diaphragm. 5. Advanced colonic diverticulosis without CT evidence of acute diverticulitis. 6. Additional findings as above. Electronically signed by: Stevie Thomas M.D. 02/08/2017 12:44 PM Dictated Date/Time: 02/08/2017 12:24 PM
== END | disposition home or self-care (01) ==
LOC: C.PET 08:39
PROVIDERS: ATTEND Internal Medicine Hematology
DX: C01 Malignant neoplasm of base of tongue (principal); C77.0 Secondary and unspecified malignant neoplasm of lymph nodes of head, face and neck

== ENCOUNTER → 2017-04-14 | Outpatient (CLI) | payer OTHER, BC ==
[~2017-04-14] MED LIST changes: +ATROPS5 SL; +ATV/1 SL; +DICY10CA55 PO; +DLCS PR; +DRGTP12 TD; +DRGTP25 TD; +GABA-113 PO; +MGCL40 PO; +MRLP17 PO; +NRN300 PO; +OMEP20TA14 PO; +OXYC-737 PO; +OXYC-90 PO; +OXYC10SO PO; -OXYC1TAB3 PO; +RMR15 PO; +SENN-61 PO; +SNKUDL10 PO; +[UNRECOGNIZED DRUG - CODE] PO
--- NOTE | 2017-04-14 12:44 | DIAGNOSTIC IMAGING REPORT ---
PET/CT CLINICAL HISTORY: Head and neck cancer. COMPARISON STUDY: PET/CT dated 02/08/2017. TECHNIQUE: One hour following the IV administration of 10.56 mCi of F-18 FDG, PET/CT examination was performed from the vertex through the bony pelvis. Noncontrast CT is performed for the purposes of anatomic correlation and attenuation correction. Note that this does not reflect a diagnostic CT examination. Images were reviewed on a separate [employer] independent workstation. Fused images were obtained. Standard uptake values reported are maximum values within the region of interest expressed in gm/mL. FINDINGS: PET FINDINGS: Head and neck: Again seen is expected physiologic activity within the brain parenchyma and the salivary glands. Again seen is an ill-defined mass lesion in the right lower neck at the level of thyroid cartilage and the sternocleidomastoid muscle in image #81 of the head and neck series. This measures approximately 5 x 4 cm, and this lesion likely invades the sternocleidomastoid muscle. This is markedly FDG avid with a maximum SUV of 9.2. There is mild soft tissue thickening seen posterior to the cricoid cartilage. This is symmetric bilaterally and demonstrate FDG activity of maximum SUV of 6.8. No obvious mass lesion is identified. No additional cervical lesions are identified. Thorax: Evaluation of the thorax demonstrates expected physiologic myocardial activity. There is an 8 mm high right paratracheal lymph node in the superior mediastinum serial axial image #50. This is FDG avid with a maximum SUV of 3.6. There is a 1.5 cm questionable focus of nodularity below the left clavicle CT on image #54. There is focal FDG activity at this site with a maximum SUV of 5.1. There is an enlarging 3.5 x 2.4 (previously measured 2.0 x 1.3) cm FDG avid lesion in the medial left lower lobe seen on image #99. This demonstrates a maximum SUV of 5.5. There is a new 10 mm right lower lobe nodule seen image #85. This is not FDG activity with a maximum SUV of 1.8. Again seen is a calcification containing precarinal lymph node on image #73. This measures 9 mm in short axis and is no longer demonstrably FDG avid. Abdomen and pelvis: There is expected activity within the liver, spleen, kidneys, renal collecting system, and bladder. Low-level bowel activity is likely within physical limits. There is evidence of acute diverticulitis involving the distal descending colon. There is marked FDG activity in this region with a maximum SUV of 6.5. There is no evidence of abscess on this unenhanced series. Unenhanced CT images: The visualized brain parenchyma is normal in appearance. The bony orbits are intact and the orbital contents are within normal limits. The paranasal sinuses and mastoid air cells appear clear. Treatment related change is suggested in the right neck. The salivary and thyroid glands are normal as imaged. There is mild atherosclerotic calcification of the thoracic aorta which is normal in caliber. The heart is normal in size and without pericardial effusion. A tiny hiatal hernia is noted. There is no airspace consolidation or pleural effusion. A large calcified granuloma is seen in the right upper lobe. There is dependent atelectasis. There is no hilar or axillary lymphadenopathy. Calcified right hilar nodes are similar to previous. The unenhanced liver, gallbladder, spleen, pancreas, adrenal glands, and kidneys are grossly unremarkable. The abdominal aorta is normal in course and caliber noting mild to moderate atherosclerotic calcification. There is no bowel obstruction. A normal appendix is identified. There is advanced colonic diverticulosis with CT evidence of acute diverticulitis involving the distal descending colon. No intraperitoneal free air or abdominal ascites is seen. There is no abdominal, retroperitoneal, pelvic sidewall, or inguinal lymphadenopathy. The bladder, prostate, and seminal vesicles are normal as visualized. Cervical as well as lumbosacral spondylosis is observed. There are healed right-sided rib fractures. A sebaceous cyst is seen in the left upper back. IMPRESSION: 1. Findings are consistent with acute diverticulitis involving the distal descending colon. No evidence of abscess is identified. 2. There has been continued progression of disease as compared to 02/08/2017, with an enlarging and markedly FDG avid mass lesion in the right lower neck. 3. There is a new FDG avid lymph node in the superior mediastinum, as well as an FDG avid nodular structure below the left clavicle. 4. There is an enlarging FDG avid pulmonary lesion in the infrahilar left lower lobe as well as a new an FDG avid nodule in the right lower lobe. 5. There is no evidence of FDG avid disease below the diaphragm. 6. Pharyngeal activity posterior to the cricoid cartilage is indeterminant and may be treatment related. No obvious mass lesion is seen. 7. Additional findings as above. Electronically signed by: Stevie Thomas M.D. 04/14/2017 12:43 PM Dictated Date/Time: 04/14/2017 12:22 PM
== END | disposition home or self-care (01) ==
LOC: C.PET 09:02
PROVIDERS: ATTEND Internal Medicine Hematology
DX: C01 Malignant neoplasm of base of tongue (principal); C78.02 Secondary malignant neoplasm of left lung; C77.0 Secondary and unspecified malignant neoplasm of lymph nodes of head, face and neck; R59.0 Localized enlarged lymph nodes; R91.8 Other nonspecific abnormal finding of lung field

== ENCOUNTER → 2017-05-26 | Outpatient (CLI) | payer OTHER, BC ==
[~2017-05-26] MED LIST changes: -ATROPS5 SL; -ATV/1 SL; -DICY10CA55 PO; -DLCS PR; -DRGTP12 TD; -MGCL40 PO; -MRLP17 PO; -NRN300 PO; -OMEP20TA14 PO; -OXYC-737 PO; -OXYC-90 PO; -OXYC10SO PO; +OXYC1TAB3 PO; -RMR15 PO; -SENN-61 PO; -SNKUDL10 PO
[2017-05-26 13:20] VITALS: BP 156/72; PULSE 87; TEMP 37; O2SAT 95
--- NOTE | 2017-05-26 15:38 | Radiation Oncology Follow-Up ---
Radiation Oncology Follow-Up Date of Visit May 26, 2017. Radiation Completion Date 12/24/16 Diagnosis (1) Malignant neoplasm of base of tongue Status: Acute Onset Date: 09/19/2014 Permanent Comment: One set of your discomfort Evaluation and finding of a right neck mass Status post FNA of a right neck node 08/22/2014 suspicious for malignancy PET/CT 08/29/2014 consistent with neoplasm left base of the tongue with extension across the midline. 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 He received 5400 cGy Last Edited By: Ghazal Ivory on Dec 31, 2016 13:34 History of Present Illness Mr. Jin was referred from ENT surgery in [place] for consideration of definitive therapy for his head and neck carcinoma. The patient had noted ear pain on the contralateral left side a few months ago when he obtained new in- ear hearing aids. The problem is worse on the left and was intermittent. He then noted about 6 weeks ago the onset of some difficulty in swallowing completely. The patient sought medical attention and was seen by ENT. Dr. Ricks noted suspicious adenopathy in the right neck at the digastric region. The patient had not noticed this. The patient was taken to the operating room for direct laryngoscopy and possible biopsy back on 09/12/2014 of this year. Biopsies from his epiglottis, glottic tip and tongue base were all NEGATIVE for carcinoma. Needle aspirate performed on 08/22/2014 of the suspicious pelon area was a suspicious for malignancy. The patient underwent a workup that included PET/CT scan on 08/29/2014. That demonstrated a mass at the tongue base that is approximately 2.5 cm in diameter (T2). There was a confluence of multiple lymph nodes seen in the right neck. The nodes were primarily in the classic digastric pelon area. These nodes were 8-9 mm in size confluence. The patient is not taking anything specifically for pain. He has noticed his appetite has remained reasonably good. He has no systemic manifestations of metastatic disease. The patient has been keeping up with his dental care. He has not seen a medical oncologist to consider combined chemoradiation in this setting. In view of the negative true biopsies and only suspicious needle aspirates we did have pathology here reneedle the lymph nodes. The "Quick" pathology read is positive for squamous cell malignancy. The HPV testing will be done on the specimen if possible. 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 They are understanding his disease. It is interesting when talking with the patient, he stopped smoking back in 1991 and has never had alcohol abuse as part of his history and does not drink alcohol at all now. He was seen by Dr. Coats. Decision was to treat him with combined radiation and chemotherapy. He completed combined radiation and chemotherapy. He developed difficulty with nutrition and had a feeding tube placed. He was able to complete the treatment. He was hospitalized for nausea and vomiting as well as dysphagia. He completed radiation therapy 11/29/2014 received 7000 cGy. Since the patient completed reirradiation in December 2016 with Erbitux. He did have a repeat PET/CT scan completed on February 08, 2017 which showed potential progression of disease as well as cancer involving the left lower lobe. The patient was then started on Pembrolizumab underneath the supervision of Dr. Robel Coats. The patient then had a repeat PET/CT completed on April 14, 2017 which revealed further progression of disease involving the right neck mass as well as enlarging lung mass in the left lower lobe. Interim History In the interim, the patient was seen by medical oncology at [facility]. The recommendation was for potential involvement in a phase 1 clinical trial. The patient is interested in enrollment in a clinical trial so he cannot be on any therapy prior to enrolling on the trial. Clinically, the patient complains of pain involving his right neck with numbness and tingling extending from the ear down to his right shoulder. He is currently on a fentanyl 25 mcg per hour patch, gabapentin, oxycodone 5 mg. He denies any weakness involving his right upper extremity. He denies any dysphasia, odynophagia. He has no other complaints. Allergies Coded Allergies: Amoxicillin (Unverified Allergy, Severe, RASH, 7/24/17) Home Medications Scheduled Coenzyme Q10 (Ubidecarenone) (Co Q-10), 100 MG PO DAILY Fentanyl (Fentanyl), 25 MCG TD [id number] Gabapentin (Neurontin), 300 MG PO BID Hyoscyamine Sulfate (Levbid), 1 TAB PO BID Ibuprofen (Motrin), 400 MG PO BID Simvastatin (Zocor), 20 MG PO QPM Scheduled PRN Oxycodone Ir (Roxicodone Ir), 1-2 TAB PO Q4H PRN for Severe Pain Review of Systems Gastrointestinal: Symptoms: WNL, Nausea GI Comments: Nausea once in a while - constipation managable Oral: Symptoms: No Problems Other Oral Symptoms: Continued taste changes - some days different than others Respiratory: Symptoms: WNL Urinary: Symptoms: WNL Skin: Symptoms: No Problems Physical Exam Vital Signs Date Time Temp Pulse Resp B/P (MAP) Pulse Ox O2 Delivery O2 Flow Rate FiO2 05/26/17 13:20 37.0 87 18 156/72 95 General Appearance: WD/WN, no apparent distress Eyes: normal inspection ENT: normal ENT inspection Neck: + pertinent finding (Fullness noted in the right neck (level III/IV). Some matted lymphedema potentially appreciated. ) Respiratory/Chest: chest non-tender, lungs clear, normal breath sounds, no respiratory distress Cardiovascular: regular rate, rhythm, no edema, no gallop, no JVD, no murmur Abdomen: normal bowel sounds, non tender, soft, no organomegaly Extremities: normal range of motion, non-tender, normal inspection, no pedal edema Neurologic/Psychiatric: loss prevention agent II-XII nml as tested, alert, oriented x 3 Skin: normal color, warm/dry, no rash Pain Management Patient Reports Pain: Yes Patient Preferred Pain Scale: 0 - 10 Initial Pain Intensity: 4.0 Pain Intervention: See MAR Pain Management Plan Continue with current pain regimen as per medical oncology. Fentanly patch, oxycodone and gabapentin is apart of his curren regimen. Laboratory Laboratory Results: not applicable Pathology Pathology Results: not applicable Imaging Imaging Studies: were reviewed, and pertinent findings noted below Imaging Comments Patient: AGNES JIN Address1: [address] Rec: [id number] Address2: Acct ID: [id number] [facility] Zip: [place] [address] Date: 1945 Sex: M Room/Bed: Ref Phy: Jaydon Muniz D.O. SC: CShanellPET Att Phy: Robel Coats M.D. Report #: [id number] Cindy Phy: Jaydon Muniz D.O. Test: PETCTST Admit Phy: Eeler: BEVERLEY Interpreting Phy: Stevie Thomas M.D. Diagnosis: HEAD/NECK CA Ordering Phy: Robel Coats M.D. Service Date: 04/14/17 Admit Date: 04/14/17 MNE: [id number] CONF: DICTATED BY: Stevie Thomas M.D.]] CC: Jaydon Muniz D.O. Patel, Nilesh A., M.D. Endcc: [~ rep ct add3]] PET/CT CLINICAL HISTORY: Head and neck cancer. COMPARISON STUDY: PET/CT dated 02/08/2017. TECHNIQUE: One hour following the IV administration of 10.56 mCi of F-18 FDG, PET/CT examination was performed from the vertex through the bony pelvis. Noncontrast CT is performed for the purposes of anatomic correlation and attenuation correction. Note that this does not reflect a diagnostic CT examination. Images were reviewed on a separate [employer] independent workstation. Fused images were obtained. Standard uptake values reported are maximum values within the region of interest expressed in gm/mL. FINDINGS: PET FINDINGS: Head and neck: Again seen is expected physiologic activity within the brain parenchyma and the salivary glands. Again seen is an ill-defined mass lesion in the right lower neck at the level of thyroid cartilage and the sternocleidomastoid muscle in image #81 of the head and neck series. This measures approximately 5 x 4 cm, and this lesion likely invades the sternocleidomastoid muscle. This is markedly FDG avid with a maximum SUV of 9.2. There is mild soft tissue thickening seen posterior to the cricoid cartilage. This is symmetric bilaterally and demonstrate FDG activity of maximum SUV of 6.8. No obvious mass lesion is identified. No additional cervical lesions are identified. Thorax: Evaluation of the thorax demonstrates expected physiologic myocardial activity. There is an 8 mm high right paratracheal lymph node in the superior mediastinum serial axial image #50. This is FDG avid with a maximum SUV of 3.6. There is a 1.5 cm questionable focus of nodularity below the left clavicle CT on image #54. There is focal FDG activity at this site with a maximum SUV of 5.1. There is an enlarging 3.5 x 2.4 (previously measured 2.0 x 1.3) cm FDG avid lesion in the medial left lower lobe seen on image #99. This demonstrates a maximum SUV of 5.5. There is a new 10 mm right lower lobe nodule seen image #85. This is not FDG activity with a maximum SUV of 1.8. Again seen is a calcification containing precarinal lymph node on image #73. This measures 9 mm in short axis and is no longer demonstrably FDG avid. Abdomen and pelvis: There is expected activity within the liver, spleen, kidneys, renal collecting system, and bladder. Low-level bowel activity is likely within physical limits. There is evidence of acute diverticulitis involving the distal descending colon. There is marked FDG activity in this region with a maximum SUV of 6.5. There is no evidence of abscess on this unenhanced series. Unenhanced CT images: The visualized brain parenchyma is normal in appearance. The bony orbits are intact and the orbital contents are within normal limits. The paranasal sinuses and mastoid air cells appear clear. Treatment related change is suggested in the right neck. The salivary and thyroid glands are normal as imaged. There is mild atherosclerotic calcification of the thoracic aorta which is normal in caliber. The heart is normal in size and without pericardial effusion. A tiny hiatal hernia is noted. There is no airspace consolidation or pleural effusion. A large calcified granuloma is seen in the right upper lobe. There is dependent atelectasis. There is no hilar or axillary lymphadenopathy. Calcified right hilar nodes are similar to previous. The unenhanced liver, gallbladder, spleen, pancreas, adrenal glands, and kidneys are grossly unremarkable. The abdominal aorta is normal in course and caliber noting mild to moderate atherosclerotic calcification. There is no bowel obstruction. A normal appendix is identified. There is advanced colonic diverticulosis with CT evidence of acute diverticulitis involving the distal descending colon. No intraperitoneal free air or abdominal ascites is seen. There is no abdominal, retroperitoneal, pelvic sidewall, or inguinal lymphadenopathy. The bladder, prostate, and seminal vesicles are normal as visualized. Cervical as well as lumbosacral spondylosis is observed. There are healed right-sided rib fractures. A sebaceous cyst is seen in the left upper back. IMPRESSION: 1. Findings are consistent with acute diverticulitis involving the distal descending colon. No evidence of abscess is identified. 2. There has been continued progression of disease as compared to 02/08/2017, with an enlarging and markedly FDG avid mass lesion in the right lower neck. 3. There is a new FDG avid lymph node in the superior mediastinum, as well as an FDG avid nodular structure below the left clavicle. 4. There is an enlarging FDG avid pulmonary lesion in the infrahilar left lower lobe as well as a new an FDG avid nodule in the right lower lobe. 5. There is no evidence of FDG avid disease below the diaphragm. 6. Pharyngeal activity posterior to the cricoid cartilage is indeterminant and may be treatment related. No obvious mass lesion is seen. 7. Additional findings as above. Assessment & Plan Assessment: Mr. 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 Most recently, the patient was treated with Pembrolizumab and continued to experience progression of disease which was confirmed by his PET/CT scan in April 2017. The patient has been seen in consultation for a second opinion at [facility] and the recommendation is to enroll on a phase 1 clinical trial. At this point, the patient is interested in enrolling on the trial if possible. Otherwise, the patient will consider further systemic therapy with Dr. Robel Coats. Unfortunately, the patient continues to suffer from progression of disease and is symptomatic in his right neck and is currently being treated with pain medications which have been listed above. Plan: 1. Follow up as needed. 2. Continue with current pain regimen. 3. Continue to follow with medical oncology. 4. Patient and family encouraged to call us with any further questions or concerns. Total Time In Follow-Up I spent 20 minutes examining and counseling the patient. I spent 15 minutes completing this note. PAID INTERN Copy To Filiberto Ricks; Vignesh Perez M.D.; Jaydon Muniz, Raimundo; Robel Coats M.D.
== END | disposition home or self-care (01) ==
LOC: C.ONC 13:19
PROVIDERS: ATTEND Physician Assistant Medical
DX: Z08 Encounter for follow-up examination after completed treatment for malignant neoplasm (principal); Z92.3 Personal history of irradiation; Z85.810 Personal history of malignant neoplasm of tongue

== ENCOUNTER → 2017-08-18 | Outpatient (CLI) | payer OTHER, BC ==
--- NOTE | 2017-08-18 12:42 | DIAGNOSTIC IMAGING REPORT ---
PET/CT SKULL-THIGH HISTORY: Head/neck carcinoma C01 TECHNIQUE: PET/CT was performed from the base of the skull through the pelvis following the intravenous administration of 15.4 mCi of [id number]. Non-contrast CT imaging was performed over the same range without breath-hold for attenuation correction of PET images and anatomic correlation, but not for primary interpretation as it is not of standard diagnostic quality. CT DOSE: COMPARISON: 04/14/2017 FINDINGS: HEAD AND NECK: Mild increase in volume of a mass of the lower right neck. Current dimensions are 6.5 x 5.5 cm with evidence for local invasion. This is mildly increased from the prior volume of 5 x 4 cm. Metabolic activity characteristics remain increased at 7.6. The lesion now demonstrates extension to the right superior mediastinum. CHEST: Several small metabolically active nodes are identified medially posterior to the left clavicle. These is slightly increased in prominence from the prior study. Slight increase in metabolic activity of the left hilum at 2 locations with SUVs of 4.6. Stable right lower lobe 1 cm nodule. This now demonstrates a slight increase in metabolic activity at 1.9 compared to the prior study. A lower right para esophageal lesion extending to the left is similar in terms of size but is currently increased in metabolic activity with current SUVs of 7.5. ABDOMEN/PELVIS: Below the diaphragm, tracer is distributed physiologically in the gastrointestinal and genitourinary tracts. There is no significant lymphadenopathy and no FDG-avid disease. MUSCULOSKELETAL: There is no FDG-avid or destructive bone lesion. IMPRESSION: 1. Progressive neoplastic change with an increase in size of an invasive lesion of the lower right neck. 2. This now shows extension to the superior right mid mediastinum. 3. Interval increase in metabolic activity of several small nodes of the left hilum and mid mediastinum. 4. Increase in metabolic activity within a 1 cm nodule right lower lobe as well as a periesophageal mass left lung base 5. Overall impression of the scan is one of progressive neoplastic and metastatic change. The above report was generated using voice recognition software. It may contain grammatical, syntax or spelling errors. Electronically signed by: Be Dsouza M.D. 08/18/2017 12:40 PM Dictated Date/Time: 08/18/2017 12:25 PM
== END | disposition home or self-care (01) ==
LOC: C.PET 09:27
PROVIDERS: ATTEND Internal Medicine Hematology
DX: C01 Malignant neoplasm of base of tongue (principal); C78.02 Secondary malignant neoplasm of left lung; C77.0 Secondary and unspecified malignant neoplasm of lymph nodes of head, face and neck; C78.1 Secondary malignant neoplasm of mediastinum